=== PATIENT | female | born 1940 | race Caucasian/White ===

== ENCOUNTER 2019-04-20 09:01 | Emergency (ER) | payer MEDICARE, OTHER ==
[~2019-04-20] VITALS: Ht 149.9 cm; Wt 72.6 kg
[~2019-04-20 09:01] MED LIST: ASPI325 PO; CALPHO600; CEPH500 PO; CLOP75 PO; EZET10 PO; FENO145 PO; FENO160; LOSHYD; LOSHYD100 PO; METO100; METO100ER; METO50 PO; METO50ER; NEBI5 PO; NIFE60ER; OMEP20ER PO; Prednisone20 MG PO
[2019-04-20 09:23] LABS: BASOPHILS ABSOLUTE AUTO 0.08 K/mm3 (0.00-0.23); BASOPHILS PERCENT AUTO 1 % (0-2); EOSINOPHILS ABSOLUTE AUTO 0.57 K/mm3 (0.00-0.68); EOSINOPHILS PERCENT AUTO 7 % (0-6); Hematocrit 42.6 % (33.0-51.0); Hemoglobin 13.9 g/dL (11.5-16.0); IMMATURE GRAN ABSOLUTE AUTO 0.01 K/mm3 (0.00-0.10); IMMATURE GRAN PERCENT AUTO 0 % (0-1); LYMPHOCYTES ABSOLUTE AUTO 2.04 K/mm3 (0.84-5.20); LYMPHOCYTES PERCENT AUTO 25 % (21-46); MONOCYTES ABSOLUTE AUTO 0.95 K/mm3 (0.16-1.47); MONOCYTES PERCENT AUTO 12 % (4-13); Mean Corpuscular HGB 30.7 pg (26.0-34.0); Mean Corpuscular HGB Conc 32.6 g/dL (31.5-36.5); Mean Corpuscular Volume 94 fL (80-100); Mean Platelet Volume 9.9 fL (9.1-12.4); NEUTROPHILS ABSOLUTE AUTO 4.48 K/mm3 (1.96-9.15); NEUTROPHILS PERCENT AUTO 55 % (41-73); Platelet Count 324 K/mm3 (150-400); RDW Coefficient Variation 12.9 % (11.7-14.2); RDW Standard Deviation 44.4 fL (35.1-46.3); Red Blood Cell Count 4.53 M/mm3 (3.80-5.20); White Blood Cell Count 8.13 K/mm3 (4.00-11.30)
[2019-04-20 09:41] LABS: Albumin, Blood 3.7 g/dL (3.4-5.0); Anion Gap 6 mmol/L (6-16); Blood Urea Nitrogen 11 mg/dL (8-24); Bun/Creatinine Ratio 18.6 (12.0-20.0); CO2, Blood 27 mmol/L (21-32); Calcium, Blood 9.5 mg/dL (8.5-10.1); Chloride, Blood 108 mmol/L (98-108); Creatinine, Blood 0.59 mg/dL (0.40-1.00); Globulin, Blood 3.6 g/dL (2.2-4.0); Glomerular Filtration Rate >60 (60-); Glucose, Blood 136 mg/dL (70-99); Potassium, Blood 3.6 mmol/L (3.5-5.5); Sodium, Blood 141 mmol/L (136-145); Total Protein, Blood 7.3 g/dL (6.4-8.2)
[2019-04-20 09:42] LABS: Alanine Aminotransfer (ALT/SGP 34 U/L (12-78); Alk Phos 53 U/L (50-136); Aspartate Aminotrans (AST/SGOT 26 U/L (12-37); Bilirubin, Total 0.5 mg/dL (0.1-1.0)
[2019-04-20 11:20] LABS: Source, Urine Clean Catch
[2019-04-20 11:26] LABS: Bilirubin, Urine Neg (Neg); Blood, Urine Neg (Neg); Glucose Qualitative, Urine Neg (Neg); Ketones, Urine Neg (Neg); Leukocyte Esterase, Urine Neg (Neg); Nitrite, Urine Neg (Neg); Protein, Urine Neg (Neg); Urobilinogen, Urine NORM (Normal)
[2019-04-20 11:38] LABS: Appearance, Urine Clear (Clear); Color, Urine Yellow (P-Yellow)
[2019-04-20] MEDS ORDERED: ONDA4ODT MM ×2 (11:55→12:10)
== END 2019-04-20 12:13 | disposition home or self-care (01) ==
LOC: ER 09:01
PROVIDERS: Emergency Medicine
DX: R10.9 Unspecified abdominal pain (principal); R11.2 Nausea with vomiting, unspecified; I10 Essential (primary) hypertension; E78.5 Hyperlipidemia, unspecified; Z88.2 Allergy status to sulfonamides; Z88.8 Allergy status to other drugs, medicaments and biological substances; Z91.048 Other nonmedicinal substance allergy status; Z79.899 Other long term (current) drug therapy; Z79.82 Long term (current) use of aspirin
CPT/HCPCS: 74177; 80053; 81003; 83690; 84484; 85025; 93005; 93010; 96374-59; 99284-25; J2405; Q9967

== ENCOUNTER 2019-04-21 22:57 | Observation (INO) | payer MEDICARE, OTHER ==
[~2019-04-21] VITALS: Ht 149.9 cm; Wt 72.6 kg
[~2019-04-21 22:57] MED LIST changes: +ONDA4ODT MM
[2019-04-21 23:42] LABS: BASOPHILS ABSOLUTE AUTO 0.03 K/mm3 (0.00-0.23); BASOPHILS PERCENT AUTO 0 % (0-2); EOSINOPHILS ABSOLUTE AUTO 0.01 K/mm3 (0.00-0.68); EOSINOPHILS PERCENT AUTO 0 % (0-6); Hematocrit 40.2 % (33.0-51.0); Hemoglobin 13.3 g/dL (11.5-16.0); IMMATURE GRAN ABSOLUTE AUTO 0.05 K/mm3 (0.00-0.10); IMMATURE GRAN PERCENT AUTO 0 % (0-1); LYMPHOCYTES ABSOLUTE AUTO 0.96 K/mm3 (0.84-5.20); LYMPHOCYTES PERCENT AUTO 8 % (21-46); MONOCYTES ABSOLUTE AUTO 0.48 K/mm3 (0.16-1.47); MONOCYTES PERCENT AUTO 4 % (4-13); Mean Corpuscular HGB 30.9 pg (26.0-34.0); Mean Corpuscular HGB Conc 33.1 g/dL (31.5-36.5); Mean Corpuscular Volume 94 fL (80-100); NEUTROPHILS ABSOLUTE AUTO 10.75 K/mm3 (1.96-9.15); NEUTROPHILS PERCENT AUTO 88 % (41-73); Platelet Count 307 K/mm3 (150-400); RDW Coefficient Variation 12.8 % (11.7-14.2); RDW Standard Deviation 44.4 fL (35.1-46.3); White Blood Cell Count 12.28 K/mm3 (4.00-11.30)
[2019-04-22 00:01] LABS: Alanine Aminotransfer (ALT/SGP 37 U/L (12-78); Albumin, Blood 3.8 g/dL (3.4-5.0); Alk Phos 50 U/L (50-136); Anion Gap 8 mmol/L (6-16); Aspartate Aminotrans (AST/SGOT 29 U/L (12-37); Bilirubin, Total 0.5 mg/dL (0.1-1.0); Blood Urea Nitrogen 11 mg/dL (8-24); Bun/Creatinine Ratio 19.5 (12.0-20.0); CO2, Blood 27 mmol/L (21-32); Calcium, Blood 9.4 mg/dL (8.5-10.1); Chloride, Blood 104 mmol/L (98-108); Creatinine, Blood 0.57 mg/dL (0.40-1.00); Globulin, Blood 3.7 g/dL (2.2-4.0); Glomerular Filtration Rate >60 (60-); Glucose, Blood 161 mg/dL (70-99); Potassium, Blood 3.2 mmol/L (3.5-5.5); Sodium, Blood 139 mmol/L (136-145); Total Protein, Blood 7.5 g/dL (6.4-8.2)
[2019-04-22 01:02] LABS: Source, Urine Clean Catch
[2019-04-22 01:10] LABS: Bilirubin, Urine Neg (Neg); Blood, Urine 1+ (Neg); Glucose Qualitative, Urine Neg (Neg); Ketones, Urine 2+ (Neg); Leukocyte Esterase, Urine Neg (Neg); Nitrite, Urine Neg (Neg); Protein, Urine Neg (Neg); Urobilinogen, Urine NORM (Normal)
[2019-04-22 01:11] LABS: Appearance, Urine Clear (Clear); Color, Urine Yellow (P-Yellow)
[2019-04-22 01:17] LABS: Bacteria Rare /hpf; Red Blood Cells, Urine 0-2 /hpf (0-2); Squamous Epithelial Cells Few /hpf (Few); White Blood Cells, Urine Not Seen /hpf (0-5)
[2019-04-22] MEDS ORDERED: LOSARTAN POTAS100 MG PO (01:38)
[2019-04-22] MEDS ORDERED: AMLO5 PO (01:39)
[2019-04-22] MEDS ORDERED: Bystolic20 MG PO (01:39)
[2019-04-22] MEDS ORDERED: VITAMIN D250 MCG PO (01:50)
[2019-04-22 04:43] LABS: Hematocrit 39.1 % (33.0-51.0); Hemoglobin 12.8 g/dL (11.5-16.0); Mean Corpuscular HGB 31.1 pg (26.0-34.0); Mean Corpuscular HGB Conc 32.7 g/dL (31.5-36.5); Mean Corpuscular Volume 95 fL (80-100); Mean Platelet Volume 9.9 fL (9.1-12.4); Platelet Count 318 K/mm3 (150-400); RDW Coefficient Variation 12.7 % (11.7-14.2); RDW Standard Deviation 44.7 fL (35.1-46.3); Red Blood Cell Count 4.12 M/mm3 (3.80-5.20); White Blood Cell Count 15.55 K/mm3 (4.00-11.30)
[2019-04-22 05:06] LABS: Alanine Aminotransfer (ALT/SGP 68 U/L (12-78); Albumin, Blood 3.5 g/dL (3.4-5.0); Alk Phos 50 U/L (50-136); Anion Gap 9 mmol/L (6-16); Aspartate Aminotrans (AST/SGOT 78 U/L (12-37); Bilirubin, Total 0.5 mg/dL (0.1-1.0); Blood Urea Nitrogen 10 mg/dL (8-24); Bun/Creatinine Ratio 17.9 (12.0-20.0); CO2, Blood 26 mmol/L (21-32); Calcium, Blood 8.9 mg/dL (8.5-10.1); Chloride, Blood 106 mmol/L (98-108); Creatinine, Blood 0.56 mg/dL (0.40-1.00); Globulin, Blood 3.4 g/dL (2.2-4.0); Glomerular Filtration Rate >60 (60-); Glucose, Blood 127 mg/dL (70-99); Potassium, Blood 3.1 mmol/L (3.5-5.5); Sodium, Blood 141 mmol/L (136-145); Total Protein, Blood 6.9 g/dL (6.4-8.2)
--- NOTE | 2019-04-22 07:23 | NUR ---
pt reports h/a 11/03 no abd pain or ref hip pain at this time assisted to bathroom to void
--- NOTE | 2019-04-22 11:43 | NUR ---
DR BACON CALLED PT HAVING INCREASED NAUSEA RE SECOND ANTI EMETIC
--- NOTE | 2019-04-22 13:53 | NUR ---
DR RICKS OFFICE CALLED BACK AGAIN CANCELED CONSULT AND CALLED DR KRYS JACKMAN GI CONSULT TALKED WITH HIM VIA CELL
--- NOTE | 2019-04-22 17:30 | NUR ---
OFFERED PT NAUSEA MEDS PT DECLINED NO H/A AT THIS TIME STILL WAITING FOR GI
[2019-04-23 04:54] LABS: BASOPHILS ABSOLUTE AUTO 0.09 K/mm3 (0.00-0.23); BASOPHILS PERCENT AUTO 1 % (0-2); EOSINOPHILS ABSOLUTE AUTO 0.23 K/mm3 (0.00-0.68); EOSINOPHILS PERCENT AUTO 3 % (0-6); Hematocrit 37.4 % (33.0-51.0); Hemoglobin 12.3 g/dL (11.5-16.0); IMMATURE GRAN ABSOLUTE AUTO 0.02 K/mm3 (0.00-0.10); IMMATURE GRAN PERCENT AUTO 0 % (0-1); LYMPHOCYTES ABSOLUTE AUTO 2.13 K/mm3 (0.84-5.20); LYMPHOCYTES PERCENT AUTO 25 % (21-46); MONOCYTES ABSOLUTE AUTO 0.77 K/mm3 (0.16-1.47); MONOCYTES PERCENT AUTO 9 % (4-13); Mean Corpuscular HGB 30.8 pg (26.0-34.0); Mean Corpuscular HGB Conc 32.9 g/dL (31.5-36.5); Mean Corpuscular Volume 94 fL (80-100); Mean Platelet Volume 9.9 fL (9.1-12.4); NEUTROPHILS ABSOLUTE AUTO 5.35 K/mm3 (1.96-9.15); NEUTROPHILS PERCENT AUTO 62 % (41-73); Platelet Count 273 K/mm3 (150-400); RDW Coefficient Variation 12.7 % (11.7-14.2); RDW Standard Deviation 44.2 fL (35.1-46.3); Red Blood Cell Count 3.99 M/mm3 (3.80-5.20); White Blood Cell Count 8.59 K/mm3 (4.00-11.30)
[2019-04-23 05:10] LABS: Albumin, Blood 3.2 g/dL (3.4-5.0); Anion Gap 7 mmol/L (6-16); Blood Urea Nitrogen 14 mg/dL (8-24); Bun/Creatinine Ratio 24.1 (12.0-20.0); CO2, Blood 23 mmol/L (21-32); Calcium, Blood 8.5 mg/dL (8.5-10.1); Chloride, Blood 112 mmol/L (98-108); Creatinine, Blood 0.58 mg/dL (0.40-1.00); Glomerular Filtration Rate >60 (60-); Glucose, Blood 81 mg/dL (70-99); Phosphorus, Blood 1.7 mg/dL (2.5-4.9); Sodium, Blood 142 mmol/L (136-145)
--- NOTE | 2019-04-23 05:40 | NUR ---
PATIENT HAS BEEN ABLE TO SLEEP, WAKING ONLY WHEN INTERRUPED OR TO VOID IN THE BR. SHE HAS HAD NO PAIN, NO NAUSEA, NO VOMITING, HER ABDOMEN IS SOFT, NO GARDING WITH HYPOACTIVE BTS. sHE IS LOOKING FORWARD TO THE POSSIBILITY OF GOING HOME TODAY.
[2019-04-23 09:26] LABS: Campylobacter Sp Not Detected (NOT DETECT); Cryptosporidium Not Detected (NOT DETECT); Cyclospora Cayetanensis Not Detected (NOT DETECT); E. Coli O157 Not Detected (NOT DETECT); Enteroaggregative E. coli-EAEC Detected (NOT DETECT); Enteropathogenic E. coli-EPEC Not Detected (NOT DETECT); Enterotoxigenic E. coli-ETEC Not Detected (NOT DETECT); Plesiomonas Shigelloides Not Detected (NOT DETECT); Salmonella Sp Not Detected (NOT DETECT); Shiga Toxin-prod E. coli-STEC Not Detected (NOT DETECT); Shigella/Enteroin E. coli-EIEC Not Detected (NOT DETECT); Vibrio Cholerae Not Detected (NOT DETECT); Vibrio Sp Not Detected (NOT DETECT); Yersinia Enterocolitica Not Detected (NOT DETECT)
[2019-04-23 09:27] LABS: Adenovirus F 40/41 Not Detected (NOT DETECT); Astrovirus Not Detected (NOT DETECT); Entamoeba Histolytica Not Detected (NOT DETECT); Giardia Lamblia Not Detected (NOT DETECT); Norovirus GI/GII Not Detected (NOT DETECT); Rotavirus A Not Detected (NOT DETECT); Sapovirus Not Detected (NOT DETECT)
[2019-04-23] MEDS ORDERED: LEVO750 PO (13:20)
[2019-04-23] MEDS ORDERED: METR500 PO (13:22)
== END 2019-04-23 13:45 | disposition home or self-care (01) ==
LOC: ER 22:57 → ERHOLD 22:58 → SURS 04-22 02:42 → ERHOLD 04-22 02:42 → ER 04-22 02:42 → ERHOLD 04-22 02:42 → SURS 04-22 03:24 → ERHOLD 04-22 03:24 → SURS 04-22 05:45
PROVIDERS: Emergency Medicine; Family Medicine; ADMIT Internal Medicine
DX: R10.32 Left lower quadrant pain (principal); R11.2 Nausea with vomiting, unspecified; R19.7 Diarrhea, unspecified; K44.9 Diaphragmatic hernia without obstruction or gangrene; M25.552 Pain in left hip; E86.0 Dehydration; E87.6 Hypokalemia; E83.39 Other disorders of phosphorus metabolism; I10 Essential (primary) hypertension; E87.2 Acidosis; D72.829 Elevated white blood cell count, unspecified; I25.10 Atherosclerotic heart disease of native coronary artery without angina pectoris; E78.5 Hyperlipidemia, unspecified; Z79.82 Long term (current) use of aspirin; Z79.899 Other long term (current) drug therapy; Z91.048 Other nonmedicinal substance allergy status; Z88.2 Allergy status to sulfonamides; Z88.8 Allergy status to other drugs, medicaments and biological substances
CPT/HCPCS: 0097U; 36415; 74177; 80053; 80069; 81001; 83605; 83690; 85025; 85027; 96361; 96365; 96366; 96367; 96372; 96374-59; 96375; 96375-59; 96376; 99285-25; A9270; C9113; G0378; J1170; J1650; J1956; J2270; J2405; J2765; J3480; J7030; Q9967

== ENCOUNTER 2021-11-20 12:35 | Inpatient (IN) | payer MEDICARE, OTHER ==
[~2021-11-20] VITALS: Ht 149.9 cm; Wt 68.6 kg
[~2021-11-20 12:35] MED LIST changes: -Hydrochlorothia50 MG PO
[2021-11-20 13:27] LABS: BASOPHILS ABSOLUTE AUTO 0.05 K/mm3 (0.00-0.23); BASOPHILS PERCENT AUTO 0 % (0-2); EOSINOPHILS ABSOLUTE AUTO 0.03 K/mm3 (0.00-0.68); EOSINOPHILS PERCENT AUTO 0 % (0-6); Hematocrit 42.8 % (33.0-51.0); Hemoglobin 13.8 g/dL (11.5-16.0); IMMATURE GRAN ABSOLUTE AUTO 0.05 K/mm3 (0.00-0.10); IMMATURE GRAN PERCENT AUTO 0 % (0-1); LYMPHOCYTES ABSOLUTE AUTO 1.54 K/mm3 (0.84-5.20); LYMPHOCYTES PERCENT AUTO 12 % (21-46); MONOCYTES ABSOLUTE AUTO 0.75 K/mm3 (0.16-1.47); MONOCYTES PERCENT AUTO 6 % (4-13); Mean Corpuscular HGB 28.9 pg (26.0-34.0); Mean Corpuscular HGB Conc 32.2 g/dL (31.5-36.5); Mean Corpuscular Volume 90 fL (80-100); Mean Platelet Volume 9.8 fL (9.1-12.4); NEUTROPHILS PERCENT AUTO 81 % (41-73); Platelet Count 426 K/mm3 (150-400); RDW Coefficient Variation 13.2 % (11.7-14.2); RDW Standard Deviation 43.8 fL (35.1-46.3); Red Blood Cell Count 4.78 M/mm3 (3.80-5.20); White Blood Cell Count 12.92 K/mm3 (4.00-11.30)
[2021-11-20 13:48] LABS: Alanine Aminotransfer (ALT/SGP 25 U/L (12-78); Albumin/Globulin Ratio 1.1 (0.8-1.8); Alk Phos 54 U/L (50-136); Anion Gap 10 mmol/L (6-16); Aspartate Aminotrans (AST/SGOT 20 U/L (12-37); Bilirubin, Total 0.6 mg/dL (0.1-1.0); Blood Urea Nitrogen 14 mg/dL (8-24); Bun/Creatinine Ratio 25.2 (12.0-20.0); CO2, Blood 27 mmol/L (21-32); Calcium, Blood 9.8 mg/dL (8.5-10.1); Chloride, Blood 99 mmol/L (98-108); Creatinine, Blood 0.56 mg/dL (0.40-1.00); Globulin, Blood 3.8 g/dL (2.2-4.0); Glomerular Filtration Rate >60 (60-); Glucose, Blood 133 mg/dL (70-99); Potassium, Blood 3.8 mmol/L (3.5-5.5); Sodium, Blood 136 mmol/L (136-145); Total Protein, Blood 7.8 g/dL (6.4-8.2)
[2021-11-20] MEDS ORDERED: Hydrochlorothia50 MG PO (15:27)
[2021-11-20 15:38] LABS: Source, Urine Clean Catch
[2021-11-20 15:42] LABS: Appearance, Urine Cloudy (Clear); Bilirubin, Urine Neg (Neg); Blood, Urine 1+ (Neg); Color, Urine Amber (P-Yellow); Glucose Qualitative, Urine Neg (Neg); Ketones, Urine Neg (Neg); Leukocyte Esterase, Urine 3+ (Neg); Nitrite, Urine Neg (Neg); Protein, Urine 2+ (Neg); Urobilinogen, Urine NORM (Normal)
[2021-11-20 16:00] LABS: Amorphous Heavy (0-Heavy)
[2021-11-20 16:01] LABS: Bacteria Many /hpf; Hyaline Casts 0-2 /lpf (0-2); Squamous Epithelial Cells Mod /hpf (Few)
[2021-11-21 05:06] LABS: BASOPHILS ABSOLUTE AUTO 0.03 K/mm3 (0.00-0.23); BASOPHILS PERCENT AUTO 0 % (0-2); EOSINOPHILS ABSOLUTE AUTO 0.03 K/mm3 (0.00-0.68); EOSINOPHILS PERCENT AUTO 0 % (0-6); Hematocrit 37.5 % (33.0-51.0); IMMATURE GRAN ABSOLUTE AUTO 0.03 K/mm3 (0.00-0.10); IMMATURE GRAN PERCENT AUTO 0 % (0-1); LYMPHOCYTES ABSOLUTE AUTO 1.12 K/mm3 (0.84-5.20); LYMPHOCYTES PERCENT AUTO 11 % (21-46); MONOCYTES ABSOLUTE AUTO 0.68 K/mm3 (0.16-1.47); MONOCYTES PERCENT AUTO 7 % (4-13); Mean Corpuscular HGB 28.6 pg (26.0-34.0); Mean Corpuscular Volume 90 fL (80-100); Mean Platelet Volume 10.1 fL (9.1-12.4); NEUTROPHILS PERCENT AUTO 82 % (41-73); Platelet Count 334 K/mm3 (150-400); RDW Coefficient Variation 13.2 % (11.7-14.2); RDW Standard Deviation 43.4 fL (35.1-46.3); Red Blood Cell Count 4.19 M/mm3 (3.80-5.20); White Blood Cell Count 10.39 K/mm3 (4.00-11.30)
--- NOTE | 2021-11-21 05:39 | NUR ---
PT IS A&O, INDEPENDENT IN ROOM AND IS ABLE TO MAKE NEEDS KNOWN. IS HERE FOR OBS D/T SBO. PT REPORTS PASSAGE OF FLATUS THIS SHIFT. C/O NAUSEA THIS AM, PRN ZOFRAN GIVEN WITH POOR RESULTS. PT IS NPO. PT SLEEPS BETWEEN CARES BUT UNABLE TO SLEEP MORE THAN A COUPLE OF HOURS D/T NAUSEA. WILL CONTINUE TO MONITOR THIS PATIENT.
[2021-11-21 05:55] LABS: Alanine Aminotransfer (ALT/SGP 19 U/L (12-78); Albumin, Blood 3.2 g/dL (3.4-5.0); Albumin/Globulin Ratio 1.1 (0.8-1.8); Alk Phos 44 U/L (50-136); Anion Gap 7 mmol/L (6-16); Aspartate Aminotrans (AST/SGOT 15 U/L (12-37); Bilirubin, Total 0.5 mg/dL (0.1-1.0); Blood Urea Nitrogen 13 mg/dL (8-24); Bun/Creatinine Ratio 27.3 (12.0-20.0); CO2, Blood 27 mmol/L (21-32); Calcium, Blood 8.8 mg/dL (8.5-10.1); Chloride, Blood 104 mmol/L (98-108); Creatinine, Blood 0.48 mg/dL (0.40-1.00); Glomerular Filtration Rate >60 (60-); Glucose, Blood 173 mg/dL (70-99); Potassium, Blood 3.3 mmol/L (3.5-5.5); Sodium, Blood 138 mmol/L (136-145); Total Protein, Blood 6.2 g/dL (6.4-8.2)
--- NOTE | 2021-11-21 11:08 | NUR ---
RN Student Note: Pt back from imaging, first part of Sm B study done. Pt having some weakness, more than this morning. She is on strict NPO until 2nd Sm B study at 1330. Will monitor for need to have a BM.
--- NOTE | 2021-11-21 12:06 | NUR ---
RN Student Note: Pt had NG tube placed at 11:35, draining yellow fluid. Pt vomited during procedure. Her gerneralized weakness continues to increase. Pt states she feels cold and hot. Will continue to monitor her for a BM.
--- NOTE | 2021-11-21 15:29 | NUR ---
RN Student Note: pt back from 3rd B follow through. hooked back up to NG suction and IV fluids.
--- NOTE | 2021-11-21 16:02 | NUR ---
Shift Summary: Pt had 3 small bowel studies done. NG tube in place and draining yellow fluid. Had one full canister, and a 2nd has filled penitentiary. Pt gaging at times, spitting into emisis bag. D5% hooked up to IV and running. Has taken a few small sips of water. She is now resting in her room.
[2021-11-22 04:11] LABS: Hematocrit 38.9 % (33.0-51.0); Hemoglobin 12.4 g/dL (11.5-16.0); Mean Corpuscular HGB 28.7 pg (26.0-34.0); Mean Corpuscular HGB Conc 31.9 g/dL (31.5-36.5); Mean Corpuscular Volume 90 fL (80-100); Mean Platelet Volume 10.2 fL (9.1-12.4); Platelet Count 368 K/mm3 (150-400); RDW Coefficient Variation 13.4 % (11.7-14.2); RDW Standard Deviation 43.9 fL (35.1-46.3); Red Blood Cell Count 4.32 M/mm3 (3.80-5.20); White Blood Cell Count 11.97 K/mm3 (4.00-11.30)
[2021-11-22 04:35] LABS: Anion Gap 6 mmol/L (6-16); Blood Urea Nitrogen 16 mg/dL (8-24); Bun/Creatinine Ratio 28.4 (12.0-20.0); CO2, Blood 29 mmol/L (21-32); Calcium, Blood 9.6 mg/dL (8.5-10.1); Chloride, Blood 111 mmol/L (98-108); Creatinine, Blood 0.56 mg/dL (0.40-1.00); Glomerular Filtration Rate >60 (60-); Glucose, Blood 175 mg/dL (70-99); Potassium, Blood 3.2 mmol/L (3.5-5.5); Sodium, Blood 146 mmol/L (136-145)
--- NOTE | 2021-11-22 05:21 | NUR ---
PT IS A&OX4, SBA TO BR AND IS ABLE TO MAKE NEEDS KNOWN. HAS NG TUBE PLACED, SET TO INTERMITTENT SUCTION, PRODUCING GREENISH BROWN DRAINAGE. PT DENIES PAIN THIS SHIFT. SLEEPS BETWEEN CARES 7+ HOURS THIS SHIFT. PT HAS D5NS RUNNING AT 100 ML/HR. NO BM THIS SHIFT BUT PT REPORTS PASSING FLATUS. WILL CONTINUE TO MONITOR THIS PATIENT AND GIVE REPORT TO ONCOMING RN.
--- NOTE | 2021-11-22 17:39 | NUR ---
SHIFT SUMMARY PT A/O X4; PLEASANT AND COOPERATIVE WITH CARE. NG TUBE IN PLACE AND HOOKED TO LOW INTERMITTENT SUCTION. ABD X RAY COMPLETE AND SHOWED PARTIAL BOWEL OBSTRUCTION. NO VOMITTING THIS SHIFT. VSS. WILL REPORT TO TRE STOCKTON.
--- NOTE | 2021-11-23 04:10 | NUR ---
NO ACUTE CHANGES THIS SHIFT. PT IS A&OX4, SBA TO BSC, AND CALLS APPROPRIATELY. G TUBE SET TO INTERMITTENT LOW SUCTION, PRODUCING GREEN FLUID. NO PAIN OR NAUSEA REPORTED THIS SHIFT, PT ABLE TO SLEEP 7+ HOURS. PT REPORTS NOT PASSING GAS OR HAVING ANY BMS THIS SHIFT. WILL CONTINUE TO MONITOR AND GIVE REPORT TO ONCOMING RN.
[2021-11-23 04:21] LABS: Hemoglobin 12.1 g/dL (11.5-16.0); Mean Corpuscular HGB 28.8 pg (26.0-34.0); Mean Corpuscular HGB Conc 31.8 g/dL (31.5-36.5); Mean Corpuscular Volume 91 fL (80-100); Mean Platelet Volume 10.3 fL (9.1-12.4); Platelet Count 319 K/mm3 (150-400); RDW Coefficient Variation 13.3 % (11.7-14.2); RDW Standard Deviation 44.2 fL (35.1-46.3); White Blood Cell Count 7.52 K/mm3 (4.00-11.30)
[2021-11-23 04:38] LABS: Anion Gap 5 mmol/L (6-16); Blood Urea Nitrogen 15 mg/dL (8-24); Bun/Creatinine Ratio 33.6 (12.0-20.0); CO2, Blood 28 mmol/L (21-32); Calcium, Blood 9.1 mg/dL (8.5-10.1); Chloride, Blood 111 mmol/L (98-108); Creatinine, Blood 0.45 mg/dL (0.40-1.00); Glomerular Filtration Rate >60 (60-); Glucose, Blood 117 mg/dL (70-99); Magnesium, Blood 1.8 mg/dL (1.6-2.4); Potassium, Blood 3.2 mmol/L (3.5-5.5); Sodium, Blood 144 mmol/L (136-145)
--- NOTE | 2021-11-23 10:45 | NUR ---
SPOKE WITH DR. DOUGHERTY REGARDING NG TUBE PLACEMENT/RESULTS OF XRAY THIS AM. XRAY SHOWS NG IN PT'S HIATAL HERNIA AND KINKED APPROX 8CM FROM END OF TUBE PER RADIOLOGY. HE REPORTED OK TO CONNECT NG TUBE TO SUCTION AND IF NOTHING OUT REMOVE NG TUBE.
--- NOTE | 2021-11-23 15:48 | NUR ---
SHIFT SUMMARY: PARTIAL BOWEL OBSTRUCTION PATIENT HAD NG TUBE TAKEN OUT EARLIER TODAY AND IS HAVING LOOSE STOOLS. IV FLUIDS RUNNING SINCE PATIENT IS STILL NPO. PATIENT HAS DENIED NAUSEA/VOMITING THROUGHOUT SHIFT. PATIENT HAS HAD A BM TODAY. SHE WAS ABLE TO SHOWER TODAY WELL. DENIES PAIN THROUGHOUT. CALLS APPROPRIATELY. CALL LIGHT WITHIN REACH.
--- NOTE | 2021-11-23 17:39 | NUR ---
SHIFT SUMMARY PT REMAINS NPO BUT IS TOLERATING SCANT ICE CHIPS. PT REPORTS MILD NAUSEA BUT STATES OVERALL SHE FEELS BETTER THAN YESTERDAY. NG TUBE WAS REMOVED THIS AM. WILL CONTINUE TO MONITOR UNTIL REPORT TO NC RN.
--- NOTE | 2021-11-24 04:36 | NUR ---
SHIFT SUMMARY A/O X4. IND TO BEDSIDE COMMODE. PT REPORTS ABDOMEN FEELING MORE DISTENDED THIS AM, AND FEELING MORE DISCOMFORT IN ABDOMEN. TREATED X1 FOR NAUSEA. HAVING MULTIPLE LOOSE BROWN STOOLS, VOIDING WELL. PT STATES HAS NOT HAD CHIPS AND SIPS SINCE BEFORE 0000 DUE TO NAUSEA. TREATED X1 FOR HTN. SBA TO BEDSIDE COMMODE. WILL CONTINUE TO MONITOR AND REPORT TO ONCOMING RN.
--- NOTE | 2021-11-24 06:22 | NUR ---
CALL PLACED TO MD AT APPROX 0620 TO GIVE UPDATE ON PT, AWAITING CALL BACK. PT STATES THAT HER ABDOMEN IS FEELING MUCH TIGHTER AND SHES HAVING INCREASED NAUSEA AND HAS VOMITED X1. PT CONTINUES TO PASS LOOSE BROWN STOOLS.
--- NOTE | 2021-11-24 11:07 | NUR ---
NAUSEA AND VOMITING PT IS HAVING INCREASED NAUSEA AND VOMINTING THIS AM. XRAY SHOWED SMALL BOWEL OBSTRUCTION IS PERSISTANT. DR. DOUGHERTY NOTIFIED AND REPORTED HE WOULD ADD HER TO THE SURGERY SCHEDULE. PRE-OP WASH WITH CHLORHEXADINE WIPES COMPLETE. MOUTH WASH AND NOSIN ALSO COMPLETE.
[2021-11-24 12:05] LABS: Anion Gap 9 mmol/L (6-16); Blood Urea Nitrogen 19 mg/dL (8-24); Bun/Creatinine Ratio 37.3 (12.0-20.0); CO2, Blood 23 mmol/L (21-32); Calcium, Blood 9.6 mg/dL (8.5-10.1); Chloride, Blood 109 mmol/L (98-108); Creatinine, Blood 0.51 mg/dL (0.40-1.00); Glomerular Filtration Rate >60 (60-); Glucose, Blood 119 mg/dL (70-99); Potassium, Blood 3.4 mmol/L (3.5-5.5); Sodium, Blood 141 mmol/L (136-145)
[2021-11-24 12:51] LABS: Influenza A, PCR NEGATIVE (NEGATIVE); Influenza B, PCR NEGATIVE (NEGATIVE); Resp Syncytial Virus, PCR NEGATIVE (NEGATIVE); SARS-Cov-2 (COVID-19) PCR, MMC NEGATIVE (NEGATIVE)
--- NOTE | 2021-11-24 13:14 | NUR ---
PT WAS TANSPORTED TO DAY SURGERY BY JUAREZ STOCKTON AT 1310. PT RECIEVED SURGICAL INSTRUCTIONS AND PREOP BATH.
--- NOTE | 2021-11-24 16:18 | NUR ---
PT RETURNED FROM EXPLORITORY LAP WITH LYSIS OF ADHESIONS AT 1550. PT WAS ALERT AND RESPONSIVE. PT HAS NG TUBE AND JAMES CATHETER IN PLACE. NG TUBE IS HOOKED TO INTERMITTENT SUCTION AND PRODUCING MODERATE AMOUNT OF FLUID. BILATERAL COMPRESSION DEVICE ARE IN PLACE AND TURNED ON. PT WAS TAUGHT HOW TO USE INCENTINVE SPIROMETER. PT STATED PAIN WAS A 2. RESTING COMFORTABLY WITH CALL LIGHT IN REACH.
--- NOTE | 2021-11-24 18:06 | NUR ---
SHIFT SUMMARY PT C/O NAUSEA AND VOMITTED VERY SMALL AMOUNTS IN THE MORNING. PT WAS ABLE TO AMBULATE TO BEDSIDE COMMODE WITH MINIMAL ASSIST DUE TO WEAKNESS. PT WAS TAKEN TO SURGERY FOR EXPLORITORY LAP WITH LYSIS OF ADHESIONS AT 1310 AND RETURNED BACK TO THE FLOOR AT 1600. PT WAS PLEASANT AND A&OX4. VITAL SIGNS WERE STABLE FOR PT. PT RETURNED WITH NG AND JAMES CATHETER. NG IS PUTING OUT MODERATE AMOUNT OF FLUID. KYLE DRESSING IN PLACE WITH SCANT AMOUNT OF SHAWDOWING. PT HAS SUCTION TO USE PRN FOR SPUTUM. PT IS RESTING AND COMFORTABLE.
--- NOTE | 2021-11-24 20:48 | NUR ---
SHIFT SUMMARY PT IS POD#0 FROM LYSIS OF ADHESIONS. PT IS IN [facility] [employer] POST-OP, SHE REPORTS FEELING BETTER OVERALL. HER FAMILY WAS CONTACTED AND AN UPDATE ON HER CONDITION PROVIDED PER PT REQUEST. PT HAS A MIDLINE KYLE DRESSING IN PLACE, SCANT SHADOWING AND HOLDING SUCTION. NG TUBE IN PLACE WITH BROWN OUTPUT. PT IS ALERT AND ORIENTED. SHE REPORTS PAIN IS TOLERABLE. REPORT GIVEN TO TRE STOCKTON.
[2021-11-25 04:02] LABS: Hematocrit 41.8 % (33.0-51.0); Hemoglobin 13.6 g/dL (11.5-16.0); Mean Corpuscular HGB 28.8 pg (26.0-34.0); Mean Corpuscular HGB Conc 32.5 g/dL (31.5-36.5); Mean Corpuscular Volume 88 fL (80-100); Mean Platelet Volume 10.1 fL (9.1-12.4); Platelet Count 371 K/mm3 (150-400); RDW Coefficient Variation 13.4 % (11.7-14.2); RDW Standard Deviation 43.5 fL (35.1-46.3); Red Blood Cell Count 4.73 M/mm3 (3.80-5.20); White Blood Cell Count 14.42 K/mm3 (4.00-11.30)
[2021-11-25 04:21] LABS: Anion Gap 7 mmol/L (6-16); Blood Urea Nitrogen 20 mg/dL (8-24); Bun/Creatinine Ratio 38.1 (12.0-20.0); CO2, Blood 25 mmol/L (21-32); Calcium, Blood 9.1 mg/dL (8.5-10.1); Chloride, Blood 109 mmol/L (98-108); Creatinine, Blood 0.53 mg/dL (0.40-1.00); Glomerular Filtration Rate >60 (60-); Glucose, Blood 171 mg/dL (70-99); Potassium, Blood 3.6 mmol/L (3.5-5.5); Sodium, Blood 141 mmol/L (136-145)
--- NOTE | 2021-11-25 18:41 | NUR ---
SHIFT SUMMARY POD1 EX LAP c MELANIA, A/OX 4, VSS, TOLERATING SIPS/CHIPS, JAMES DRAINING TO GRAVITY, DENIES PAIN T/O SHIFT, NG TUBE IN PLACE SET TO LIS. NO ACUTE EVENTS THIS SHIFT. CALL LIGHT IN REACH, WILL CTM AND REPORT TO ONCOMING NOC RN.
--- NOTE | 2021-11-26 05:06 | NUR ---
SHIFT SUMMARY A/O X4. BEDREST THIS EVENING. POD1 EX LAP WITH MELANIA, SCANT AMOUNT OF RED DRIED DRAINAGE ON KYLE DRESSING. PT RESTED COMFORTABLY THROUGHOUT THE NIGHT, NO PAIN, NAUSEA, OR VOMITING. NG TUBE TO LIS, DRAINING GREENISH BROWN FLUID. TOLERATING SIPS AND CHIPS. JAMES PATENT AND DRAINING TO GRAVITY. TREATED 1X FOR HTN PER EMAR. WILL CONTINUE TO MONITOR AND REPORT TO ONCOMING RN.
--- NOTE | 2021-11-26 12:33 | NUR ---
Spiritual Care Visit. Pt. is sitting in chair and welcomes my visit. The pt. is pleasant and displays evidence of a clear mind and a motivation to heal and recover. Develop rapport iwth the Pt. Pt. displays evidence of trust and engagement. Pryaed with Pt. Pt. verbalized gratitude for the spiritual care visit, and also verbalized gratitude that the hospital would have chaplains available for people.
--- NOTE | 2021-11-26 19:11 | NUR ---
SHIFT SUMMARY POD2 EX LAP c LYSIS OF ADHESIONS, NG TUBE REMOVED TODAY AT AROUND 1400 PER GEN SURGERY, TOLERATING CLEARS AND COFFEE, DENIES PAIN, TRANSFERS WELL TO BSC AND CHAIR. PT EAGER TO GO HOME AND IS HOPING TO DO SO TOMORROW. NO ACUTE EVENTS THIS SHIFT, CALL LIGHT IN REACH, REPORT GIVEN TO TRE STOCKTON.
--- NOTE | 2021-11-27 02:01 | NUR ---
ASSUMED CARE OF PT AT THIS TIME. PT RESTING IN BED AND DENIES ANY NEEDS AT THIS TIME. CALL LIGHT WITHIN REACH.
--- NOTE | 2021-11-27 04:29 | NUR ---
SHIFT SUMMARY NO ACUTE CHANGES SINCE ASSUMING CARE OF PT. PT CONTINUES TO DENY PAIN. MIDLINE ABD WITH KYLE DRESSING REMAINS UNCHANGED. PASSING FLATUS AND HAVING LIQUID BMS. TANYA CLEAR LIQ DIET. 1 SBA TO BSC. USES CALL LIGHT APPROPRIATELY.
[2021-11-27 05:42] LABS: Anion Gap 7 mmol/L (6-16); Blood Urea Nitrogen 13 mg/dL (8-24); Bun/Creatinine Ratio 28.8 (12.0-20.0); CO2, Blood 24 mmol/L (21-32); Calcium, Blood 8.4 mg/dL (8.5-10.1); Chloride, Blood 108 mmol/L (98-108); Creatinine, Blood 0.45 mg/dL (0.40-1.00); Glomerular Filtration Rate >60 (60-); Glucose, Blood 88 mg/dL (70-99); Potassium, Blood 3.4 mmol/L (3.5-5.5); Sodium, Blood 139 mmol/L (136-145)
--- NOTE | 2021-11-27 14:37 | NUR ---
SHIFT SUMMARY: PT TOLERATED CLEAR LIQUID DIET AND WAS ADVANCED TO FULL LIQUID DIET BY HOSPITALIST. AFTER FULL LIQUID LUNCH HAD INCREASE IN LOOSE STOOL. 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 PT IS TO GO TO [facility]ULAR DIET AT [facility]. EATING, DRINKING, AND VOIDING. AMBULATING WELL WITH MINIMAL ASSISTANCE. REPORTS NO PAIN BUT MINIMAL SORENESS AND TENDERNESS TO THE INCISION SITE.
--- NOTE | 2021-11-27 16:11 | NUR ---
ASSUMED CARE OF PT FROM MAHIN MAYBERRY.
--- NOTE | 2021-11-27 17:24 | NUR ---
PT REPORTED ACID INDIGESTION AFTER ASSUMING CARE. OBTAINED ORDERS AND MEDICATED W/TUMS PER ORDER. PT NOW VISITIN W/PASTORAL CARE.
--- NOTE | 2021-11-27 18:11 | NUR ---
Spiritual Care Visit Pt. is sitting up in chair and welcomes my visit. Pt. is pleasant, but unsettled that she cannot seem to tolerate milk. Through theraputic listening rapport is re-established. Pt. sought biblical answers to some classic EOL questions. Explore sarah and belief. Pt. displays evidence of trust an engagement. Prayed with Pt. Pt. verbalized gratitude for the spiritual care visit.
--- NOTE | 2021-11-28 04:22 | NUR ---
SUMMARY PT SLEPT WELL T/O THE SHIFT. PT AMBULATED INDEPENDENTLY TO THE BATHROOM TWICE TO HAVE BOWEL MOVEMENTS. PT DENIES ANY ABDOMINAL PAIN. PT IS CURRENTLY SLEEPING WITH NO SIGN OF DISTRESS. CALL LIGHT IN REACH.
[2021-11-28 05:11] LABS: Anion Gap 8 mmol/L (6-16); Blood Urea Nitrogen 9 mg/dL (8-24); Bun/Creatinine Ratio 19.4 (12.0-20.0); CO2, Blood 25 mmol/L (21-32); Calcium, Blood 8.6 mg/dL (8.5-10.1); Chloride, Blood 105 mmol/L (98-108); Creatinine, Blood 0.46 mg/dL (0.40-1.00); Glomerular Filtration Rate >60 (60-); Glucose, Blood 90 mg/dL (70-99); Potassium, Blood 3.2 mmol/L (3.5-5.5); Sodium, Blood 138 mmol/L (136-145)
[2021-11-28] MEDS ORDERED: ONDA4ODT SL (12:11)
--- NOTE | 2021-11-28 12:52 | NUR ---
PT WAS PROVIDED WITH VERBAL AND WRITTEN DISCHARGE INSTRUCTIONS AND EDUCATION PACKETS. KYLE DRESSING WAS REMOVED AND INCISION WAS ABSENT OF REDNESS, SWELLING, OR DISCHARGE. MELISSA INTACT AND INSICION CLOSED. MEDIPORE DRESSING PLACED AND EXTRA DRESSING PROVIDED FOR DRESSING CHANGES AT HOME. PT DENIED HAVING ANY QUESTIONS. PT WAS TAKEN BY WHEEL CHAIR TO WAITING VEHICLE. PT'S DAUGHTER HELPED PT INTO CAR. PT STATED SHE RECIEVED EXCELLENT CARE BY ALL STAFF MEMBERS.
== END 2021-11-28 12:52 | disposition home or self-care (01) | DRG 336 ==
LOC: ER 12:35 → SURS 17:39
PROVIDERS: Internal Medicine; Student in an Organized Health Care Education/Training Program; Surgery; ADMIT Internal Medicine
PROC: 0DN80ZZ Release Small Intestine, Open Approach (ICD-10-PCS; principal; 2021-11-24 12:30)
DX: K56.50 Intestinal adhesions [bands], unspecified as to partial versus complete obstruction (principal); R18.8 Other ascites; D72.829 Elevated white blood cell count, unspecified; Z66 Do not resuscitate; Z20.822 Contact with and (suspected) exposure to COVID-19; E87.6 Hypokalemia; I10 Essential (primary) hypertension; R51.9 Headache, unspecified; E78.5 Hyperlipidemia, unspecified; I25.10 Atherosclerotic heart disease of native coronary artery without angina pectoris; Z88.2 Allergy status to sulfonamides; Z88.8 Allergy status to other drugs, medicaments and biological substances; Z91.09 Other allergy status, other than to drugs and biological substances; Z79.82 Long term (current) use of aspirin; Z79.899 Other long term (current) drug therapy; Z95.5 Presence of coronary angioplasty implant and graft; Z90.49 Acquired absence of other specified parts of digestive tract; Z90.710 Acquired absence of both cervix and uterus
CPT/HCPCS: 0241U; 36415; 74018; 74022; 74177; 74250; 80048; 80053; 81001; 83690; 83735; 85025; 85027; 87086; 93005; 93010; 96374-59; 99285-25; A9270; C9113; J0360; J0690; J1100; J2370; J2405; J2704; J3010; J3480; J7030; J7040; J7042; J7120; Q9967

== ENCOUNTER → 2021-11-20 | Outpatient (CLI) | payer MEDICARE, OTHER ==
[~2021-11-20] MED LIST changes: +AMLO5 PO; +Bystolic20 MG PO; +Hydrochlorothia50 MG PO; +LEVO750 PO; +LOSARTAN POTAS100 MG PO; +METR500 PO; +VITAMIN D250 MCG PO
[2021-11-20 11:26] LABS: BASOPHILS ABSOLUTE AUTO 0.04 K/mm3 (0.00-0.23); BASOPHILS PERCENT AUTO 0 % (0-2); EOSINOPHILS ABSOLUTE AUTO 0.02 K/mm3 (0.00-0.68); EOSINOPHILS PERCENT AUTO 0 % (0-6); Hematocrit 41.6 % (33.0-51.0); Hemoglobin 13.6 g/dL (11.5-16.0); IMMATURE GRAN ABSOLUTE AUTO 0.04 K/mm3 (0.00-0.10); IMMATURE GRAN PERCENT AUTO 0 % (0-1); LYMPHOCYTES ABSOLUTE AUTO 1.11 K/mm3 (0.84-5.20); LYMPHOCYTES PERCENT AUTO 9 % (21-46); MONOCYTES ABSOLUTE AUTO 0.62 K/mm3 (0.16-1.47); MONOCYTES PERCENT AUTO 5 % (4-13); Mean Corpuscular HGB 29.1 pg (26.0-34.0); Mean Corpuscular HGB Conc 32.7 g/dL (31.5-36.5); Mean Corpuscular Volume 89 fL (80-100); Mean Platelet Volume 9.5 fL (9.1-12.4); NEUTROPHILS ABSOLUTE AUTO 10.61 K/mm3 (1.96-9.15); NEUTROPHILS PERCENT AUTO 85 % (41-73); Platelet Count 392 K/mm3 (150-400); RDW Coefficient Variation 13.4 % (11.7-14.2); RDW Standard Deviation 43.8 fL (35.1-46.3); Red Blood Cell Count 4.68 M/mm3 (3.80-5.20); White Blood Cell Count 12.44 K/mm3 (4.00-11.30)
[2021-11-20 11:35] LABS: Alanine Aminotransfer (ALT/SGP 23 U/L (12-78); Albumin, Blood 3.9 g/dL (3.4-5.0); Alk Phos 59 U/L (40-126); Amylase, Blood 47 U/L (25-115); Anion Gap 10 mmol/L (6-16); Aspartate Aminotrans (AST/SGOT 18 U/L (12-37); Bilirubin, Total 0.6 mg/dL (0.1-1.0); Blood Urea Nitrogen 14 mg/dL (8-24); Bun/Creatinine Ratio 18.7 (12.0-20.0); CO2, Blood 29 mmol/L (21-32); Calcium, Blood 9.7 mg/dL (8.5-10.1); Chloride, Blood 99 mmol/L (98-108); Creatinine, Blood 0.75 mg/dL (0.40-1.00); Globulin, Blood 3.9 g/dL (2.2-4.0); Glomerular Filtration Rate >60 (60-); Glucose, Blood 140 mg/dL (70-99); Potassium, Blood 3.6 mmol/L (3.5-5.5); Sodium, Blood 138 mmol/L (136-145); Total Protein, Blood 7.8 g/dL (6.4-8.2)
== END | disposition home or self-care (01) ==
LOC: LAB SHORT 11:20
PROVIDERS: Physician Assistant
DX: R10.9 Unspecified abdominal pain (principal)
CPT/HCPCS: 80053; 82150; 83690; 85025